=== PATIENT | male | born 1995 | race Caucasian/White ===

== ENCOUNTER 2016-03-14 02:19 | Emergency (ER) | payer SELFPAY ==
[~2016-03-14] VITALS: Ht 175.3 cm; Wt 68.2 kg
[2016-03-14 03:28] VITALS: BP 137/76
[2016-03-14] MEDS ORDERED: BACITRACIN 0.9 GM PACKET OINTMENT TP ONE (04:15)
== END 2016-03-14 04:24 | disposition home or self-care (01) ==
LOC: EMS 02:20
DX: S00.83XA Contusion of other part of head, initial encounter (principal); X58.XXXA Exposure to other specified factors, initial encounter; Y93.89 Activity, other specified; Y92.89 Other specified places as the place of occurrence of the external cause; Y99.8 Other external cause status
CPT/HCPCS: 99283

== ENCOUNTER 2017-01-27 07:24 | Inpatient (IN) | payer MEDICAID ==
[~2017-01-27] VITALS: Ht 172.7 cm; Wt 66.5 kg
[2017-01-27] MEDS ORDERED: HALOPERIDOL 5 MG TABLET PO PRN (10:45)
[2017-01-27] MEDS ORDERED: ZOLPIDEM TARTRATE 10 MG TABLET PO PRN (10:45)
[2017-01-27] MEDS ORDERED: LORazepam 2 MG TABLET PO PRN (10:45)
[2017-01-27] MEDS ORDERED: DiphenhydrAMINE HCL 50 MG/ML VIAL ONE (12:22)
[2017-01-27] MEDS ORDERED: HALOPERIDOL LACTATE 5 MG/ML VIAL ONE (12:22)
[2017-01-27] MEDS ORDERED: LORazepam 2 MG/ML VIAL ONE (12:22)
[2017-01-27] MEDS ORDERED: LORazepam 2 MG/ML VIAL IM ONE (12:30)
[2017-01-27] MEDS ORDERED: DiphenhydrAMINE HCL 50 MG/ML VIAL IM ONE (12:30)
[2017-01-27] MEDS ORDERED: HALOPERIDOL LACTATE 5 MG/ML VIAL IM ONE (12:30)
[2017-01-27 12:53] VITALS: BP 130/70
[2017-01-27 16:00] VITALS: BP 130/68
[2017-01-27] MEDS: HALOPERIDOL 5 MG TABLET PO SCH (17:00)
[2017-01-28] MEDS ORDERED: INFLUENZA VIRUS VACCINE QVS 2017-18 (3YR+)/PF 60 MCG/0.5 ML SYRINGE IM ONE (01:15)
[2017-01-28 08:30] VITALS: BP 147/80
[2017-01-28] MEDS: HALOPERIDOL 5 MG TABLET PO SCH ×2 (09:00→16:44)
[2017-01-28] MEDS ORDERED: BACITRACIN 28.4 GM OINTMENT TP PRN (12:30)
[2017-01-28] MEDS ORDERED: ACETAMINOPHEN 325 MG TABLET PO PRN (12:30)
[2017-01-28] MEDS ORDERED: BENZOCAINE/MENTHOL LOZENGE MM PRN (12:30)
[2017-01-28] MEDS ORDERED: LOPERAMIDE HCL 2 MG CAPSULE PO PRN (12:30)
[2017-01-28] MEDS ORDERED: CloNIDine HCL 0.1 MG TABLET PO PRN (12:30)
[2017-01-28] MEDS ORDERED: MAG HYDROX/AL HYDROX/SIMETH ES 30 ML SUSPENSION UDCUP PO PRN (12:30)
[2017-01-28] MEDS ORDERED: IBUPROFEN 600 MG TABLET PO PRN (12:30)
[2017-01-28] MEDS ORDERED: PETROLATUM,WHITE 71 GM JELLY TP PRN (12:30)
[2017-01-28] MEDS ORDERED: MAGNESIUM HYDROXIDE SUSPENSION 30 ML UDCUP PO PRN (12:30)
[2017-01-28] MEDS ORDERED: ONDANSETRON HCL 4 MG TABLET PO PRN (12:30)
[2017-01-28] MEDS ORDERED: ALBUTEROL SULFATE HFA 90 MCG/PUFF 8 GM INHALER IH PRN (12:30)
[2017-01-28 16:00] VITALS: BP 136/75
[2017-01-29 06:13] VITALS: BP 137/66
[2017-01-29 08:27] VITALS: BP 130/68
[2017-01-29] MEDS: HALOPERIDOL 5 MG TABLET PO SCH ×2 (09:00→17:00)
[2017-01-29 16:00] VITALS: BP 130/73
[2017-01-30 06:46] VITALS: BP 121/67
[2017-01-30 08:37] VITALS: BP 132/72
[2017-01-30] MEDS: HALOPERIDOL 5 MG TABLET PO SCH (09:00)
[2017-01-30] MEDS ORDERED: HALO5 PO (14:43)
== END 2017-01-30 13:40 | disposition home or self-care (01) | DRG 751 ==
LOC: EMS 07:25 → B3A 11:03
PROVIDERS: ADMIT Psychiatry & Neurology Psychiatry; ATTEND Psychiatry & Neurology Psychiatry
DX: F29 Unspecified psychosis not due to a substance or known physiological condition (principal); Z78.1 Physical restraint status; F32.9 Major depressive disorder, single episode, unspecified; F41.9 Anxiety disorder, unspecified; S00.81XA Abrasion of other part of head, initial encounter; R03.0 Elevated blood-pressure reading, without diagnosis of hypertension; G47.00 Insomnia, unspecified; F15.90 Other stimulant use, unspecified, uncomplicated; Z91.14 Patient's other noncompliance with medication regimen; Z59.0 Homelessness; Z79.899 Other long term (current) drug therapy; X58.XXXA Exposure to other specified factors, initial encounter; Y93.89 Activity, other specified; Y92.89 Other specified places as the place of occurrence of the external cause; Y99.8 Other external cause status
CPT/HCPCS: 90471; 99291; J1200; J1630; J2060

== ENCOUNTER 2018-09-08 10:14 | Emergency (ER) | payer SELFPAY ==
[~2018-09-08] VITALS: Ht 167.6 cm; Wt 148.0 kg
[~2018-09-08 10:14] MED LIST: HALO5TAB2 PO
[2018-09-08 11:49] VITALS: BP 135/85
== END 2018-09-08 12:27 | disposition home or self-care (01) ==
LOC: EMS 10:15
DX: S21.232A Puncture wound without foreign body of left back wall of thorax without penetration into thoracic cavity, initial encounter (principal); Y35.893A Legal intervention involving other specified means, suspect injured, initial encounter; Y93.89 Activity, other specified; Y92.89 Other specified places as the place of occurrence of the external cause; Y99.8 Other external cause status
CPT/HCPCS: 93005